=== PATIENT | female | born 1990 | race African-American/Black ===

== ENCOUNTER 2016-04-25 14:02 | Emergency (ER) | payer SELFPAY ==
[~2016-04-25] VITALS: Ht 162.6 cm; Wt 53.1 kg
[2016-04-25 15:24] VITALS: BP 175/93
[2016-04-25] MEDS ORDERED: ACETAMINOPHEN 500 MG TABLET PO ONE (15:45)
[2016-04-25] MEDS ORDERED: ONDANSETRON PF 4 MG/2 ML VIAL. IV ONE (15:45)
[2016-04-25] MEDS ORDERED: LORAZEPAM 2 MG/ML VIAL IV ONE (15:45)
[2016-04-25] MEDS ORDERED: IV NORMAL SALINE 1000ML BAG 1,000 ML IV ONE (15:45)
[2016-04-25 15:50] LABS: BASO % 1 % (0-3); EOS % 1 % (0-3); HEMOGLOBIN 12.9 g/dL (12.0-15.5); LYMPH # 1.9 x10^3/uL (1.0-4.8); LYMPH % 35 % (24-48); MEAN CORPUSCULAR HEMOGLOBIN 31 pg (25-35); MEAN CORPUSCULAR HGB CONC 34 g/dL (31-37); MEAN CORPUSCULAR VOLUME 92 fL (79-100); MONO % 7 % (0-9); NEUT % 57 % (31-73); PLATELET COUNT 253 x10^3/uL (140-400); RED BLOOD COUNT 4.12 x10^6/uL (3.50-5.40); WHITE BLOOD COUNT 5.5 x10^3/uL (4.0-11.0)
[2016-04-25 16:00] LABS: CALCIUM 9.6 mg/dL (8.5-10.1); CREATININE 0.9 mg/dL (0.6-1.0); GFR 75.7; POTASSIUM 3.3 mmol/L (3.5-5.1)
[2016-04-25 16:01] LABS: OBC FLU VALID
--- NOTE | 2016-04-25 16:01 | EKG ---
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
--- NOTE | 2016-04-25 16:16 | RAD ---
Portable chest, 04/25/2016: History: Chest pain The heart size is normal. The lungs are clear. There is no evidence of pleural fluid. IMPRESSION: No significant abnormality is detected.
[2016-04-25 16:24] LABS: NEG OBC FOB NEG; POS OBC FOB POS
[2016-04-25] MEDS ORDERED: ONDA4TAB7 PO (17:43)
--- NOTE | 2016-04-25 17:43 | PHYS DOC ---
Past Medical History Past Medical History: Anemia, Anxiety Past Surgical History: No Surgical History Additional Information: 1/2 pack per day Alcohol Use: Heavy Additional Information: mother stated pt drinks occassionally Drug Use: None Social History Narrative: pt stated no drugs but smell of marijuana in the room Adult General Chief Complaint Chief Complaint: MULTIPLE COMPLAINTS HPI HPI 25-year-old female presented with multiple complaints most concerning of which was noted dark stools today as well as mild body aches and shivering. Patient states she has chills. Patient denies any significant abdominal pain. She denies any nausea or vomiting. He denies any cough or congestion. She denies any chest pain or shortness of breath. Patient denies any history of ulcers. She denies any dizziness or lightheadedness. She denies any dysuria or hematuria. Review of Systems Review of Systems Constitutional: Denies fever or chills [] Eyes: Denies change in visual acuity, redness, or eye pain [] HENT: Denies nasal congestion or sore throat [] Respiratory: Denies cough or shortness of breath [] Cardiovascular: No additional information not addressed in HPI [] GI: Denies abdominal pain, nausea, vomiting, bloody stools or diarrhea [] : Denies dysuria or hematuria [] Musculoskeletal: Denies back pain or joint pain [] Integument: Denies rash or skin lesions [] Neurologic: Denies headache, focal weakness or sensory changes [] Endocrine: Denies polyuria or polydipsia [] Current Medications Current Medications Current Medications Medications (Trade) Dose Ordered Sig/Erik Start Time Stop Time Status Last Admin Dose Admin Acetaminophen (Tylenol) 1,000 mg 1X ONCE 04/25/16 15:45 04/25/16 15:46 DC 04/25/16 15:45 1,000 MG Lorazepam (Ativan) 1 mg 1X ONCE 04/25/16 15:45 04/25/16 15:46 DC Ondansetron HCl 4 mg 4 mg 1X ONCE 04/25/16 15:45 04/25/16 15:46 DC Sodium Chloride (Iv Sodium Chloride 0.9% 1000ml Bag) 1,000 ml @ 1,000 mls/hr 1X ONCE 04/25/16 15:45 04/25/16 16:44 DC 04/25/16 16:22 1,000 MLS/HR Allergies Allergies Allergies Coded Allergies Type Severity Reaction Last Updated Verified No Known Drug Allergies 04/25/16 No Physical Exam Physical Exam Constitutional: Well developed, well nourished, no acute distress, non-toxic appearance. [] HENT: Normocephalic, atraumatic, bilateral external ears normal, oropharynx moist, no oral exudates, nose normal. [] Eyes: PERRLA, EOMI, conjunctiva normal, no discharge. [] Neck: Normal range of motion, no tenderness, supple, no stridor. [] Cardiovascular:Heart rate regular rhythm, no murmur [] Lungs & Thorax: Bilateral breath sounds clear to auscultation [] Abdomen: Bowel sounds normal, soft, no tenderness, no masses, no pulsatile masses. [] Skin: Warm, dry, no erythema, no rash. [] Back: No tenderness, no CVA tenderness. [] Extremities: No tenderness, no cyanosis, no clubbing, ROM intact, no edema. [] Neurologic: Alert and oriented X 3, normal motor function, normal sensory function, no focal deficits noted. [] Psychologic: Affect normal, judgement normal, mood normal. [] Current Patient Data Vital Signs Vital Signs Date Time Temp Pulse Resp B/P Pulse Ox O2 Delivery O2 Flow Rate FiO2 04/25/16 15:24 100 104 30 175/93 97 Nasal Cannula 2 100.0 Lab Values Laboratory Tests Test 04/25/16 14:55 04/25/16 15:00 POC Urine HCG, Qualitative Hcg negative (Negative) White Blood Count 5.5x10^3/uL (4.0-11.0) Red Blood Count 4.12x10^6/uL (3.50-5.40) Hemoglobin 12.9g/dL (12.0-15.5) Hematocrit 38.0% (36.0-47.0) Mean Corpuscular Volume 92fL (79-100) Mean Corpuscular Hemoglobin 31pg (25-35) Mean Corpuscular Hemoglobin Concent 34g/dL (31-37) Red Cell Distribution Width 14.0% (11.5-14.5) Platelet Count 253x10^3/uL (140-400) Neutrophils (%) (Auto) 57% (31-73) Lymphocytes (%) (Auto) 35% (24-48) Monocytes (%) (Auto) 7% (0-9) Eosinophils (%) (Auto) 1% (0-3) Basophils (%) (Auto) 1% (0-3) Neutrophils # (Auto) 3.1x10^3uL (1.8-7.7) Lymphocytes # (Auto) 1.9x10^3/uL (1.0-4.8) Monocytes # (Auto) 0.4x10^3/uL (0.0-1.1) Eosinophils # (Auto) 0.1x10^3/uL (0.0-0.7) Basophils # (Auto) 0.0x10^3/uL (0.0-0.2) Stool Occult Blood Negative (NEG) Sodium Level 139mmol/L (136-145) Potassium Level 3.3mmol/L (3.5-5.1) L Chloride Level 100mmol/L (98-107) Carbon Dioxide Level 20mmol/L (21-32) L Anion Gap 19 (6-14) H Blood Urea Nitrogen 18mg/dL (7-20) Creatinine 0.9mg/dL (0.6-1.0) Estimated GFR (Cockcroft-Gault) 75.7 Glucose Level 105mg/dL (70-99) H Calcium Level 9.6mg/dL (8.5-10.1) Influenza Type A Antigen Negative (NEGATIVE) Influenza Type B Antigen Negative (NEGATIVE) Laboratory Tests 04/25/16 15:00 Laboratory Tests 04/25/16 15:00 EKG EKG EKG as interpreted by me shows a sinus rhythm with noted artifact seen but no acute ischemic findings. There is an approximate rate of 83 bpm. Radiology/Procedures Radiology/Procedures One view of the chest as interpreted by me does not demonstrate an acute cardiopulmonary abnormality. Course & Med Decision Making Course & Med Decision Making Pertinent Labs and Imaging studies reviewed. (See chart for details) This 25-year-old female with ongoing subjective myalgias and a concern for dark stool episode today has blood work that unrevealing. Chest x-rays unremarkable. Her stool is negative for any blood. Patient was given an IV liter of fluid. Upon my final reassessment, the patient feels much improved. Flu swabs were also negative. I instructed the patient to follow closely with her primary care doctor. She is very agreeable as planned and will be discharged without incident. Instructed her to return if she develops any dark stools or any other new symptoms. He is provided a dose of Zofran and told to remain well-hydrated at home. She is likely having some sort of febrile illness but will be safe to receive close follow up. Dragon Disclaimer Dragon Disclaimer This electronic medical record was generated, in whole or in part, using a voice recognition dictation system. Departure Departure Impression: Primary Impression: Myalgia Disposition: HOME, SELF-CARE Admitting Physician: Other Condition: STABLE Referrals: NO PCP (PCP) Patient Instructions: Myalgia, Adult Additional Instructions: Please continue to drink plenty of fluids and stay well hydrated. Follow up closely with your primary doctor in the next 2-3 days. Return to the ER if you develop any worsening of your symptoms. Scripts Ondansetron Hcl (Zofran)4 Mg Tablet4 Mg PO BID PRN NAUSEA/VOMITING #10 TAB Prov:HE NESS DO 04/25/16 HE NESS DO Apr 25, 2016 17:43
== END 2016-04-25 18:06 | disposition home or self-care (01) ==
LOC: ER 14:02
DX: M79.1 Myalgia (principal); R68.83 Chills (without fever); F17.200 Nicotine dependence, unspecified, uncomplicated
CPT/HCPCS: 36415; 71010; 80048; 81025; 82274; 85027; 87804; 93005; 96360; 99285; J7030